=== PATIENT | female | born 1960 | race Caucasian/White ===

== ENCOUNTER 2021-11-03 13:30 | Outpatient (CLI) | payer OTHER, SELFPAY ==
[2021-11-03 21:38] LABS: Albumin* 4.1 g/dL (3.3-5.0)
[2021-11-03 21:41] LABS: Alkaline Phosphatase* 76 U/L (40-150); Aspartate Amino Transferase* 45 U/L (12-35); Bilirubin Direct* 0.3 mg/dL (0.0-0.5); Bilirubin Total* 0.5 mg/dL (0.1-1.5); Total Protein* 7.3 g/dL (6.0-8.3)
[2021-11-03 21:42] LABS: Alanine Aminotransferase* 30 U/L (4-35)
== END 2021-11-03 13:31 | disposition home or self-care (01) ==
LOC: LKVREF 13:30
PROVIDERS: PCP Physician Assistant Medical; Visit Provider Physician Assistant Medical
DX: R74.8 Abnormal levels of other serum enzymes (principal); I10 Essential (primary) hypertension
CPT/HCPCS: 80076

== ENCOUNTER 2021-12-29 09:28 | Emergency (ER) | payer OTHER, SELFPAY ==
[2021-12-29 09:32] VITALS: BP 185/102; PULSE 79; RESP 16; TEMP 36.6; O2SAT 96; BMI 29.8
--- NOTE | 2021-12-29 09:58 | ED_ITS ---
HPI - Fall General Time Seen by Provider: 09:58 Date Seen: 12/29/21 Chief Complaint: Fall/Minor Trauma Stated Complaint: Fell and hurt both shoulders Time Seen by Provider: 12/29/21 09:57 Source: patient and RN notes reviewed Mode of arrival: ambulatory Limitations: no limitations History of Present Illness HPI Narrative: Patient is a 61-year-old female coming in after a fall at work at about 730 this morning. She tripped and fell on her right shoulder landing on her right shoulder. She states it hurts in the right shoulder and inside the right upper arm. She states her fingers feel a little tingly in that side. She also thinks she may have dislocated her left shoulder. She feels it is crunchy in there and both shoulders hurt to move. She did land a bit on her right knee but she is able to walk, having no ongoing pain or concerns with ambulation. She did not hit her head, there was no loss of consciousness. She is having no chest wall pain, no difficulty breathing. MD complaint: fall Related Data Home Medications Medication Instructions Recorded Confirmed cholecalciferol (vitamin D3) 25 25 mcg PO QDAY 10/25/21 11/03/21 mcg (1,000 unit) capsule simvastatin 40 mg tablet 40 mg PO QPM 10/25/21 11/03/21 calcium carbonate 500 mg calcium mg PO DAILY 11/03/21 11/03/21 (1,250 mg) tablet Previous Rx's Medication Instructions Recorded lisinopril 10 1 tab PO QDAY #90 tabs 11/29/21 mg-hydrochlorothiazide 12.5 mg tablet Allergies Allergy/AdvReac Type Severity Reaction Status Date / Time penicillin V Allergy Mild throat Verified 11/03/21 12:54 swelling Review of Systems Status of ROS: Reports: 6 or more systems reviewed and unremarkable except as noted in History and below PFSH PFS Surgical History (Updated 11/02/21 @ 16:16 by Jordan Mesa) History of bunionectomy History of thyroid surgery Status post total replacement of right hip (2019) Family History (Updated 11/02/21 @ 16:17 by Jordan Mesa) Mother Aneurysm Breast cancer High blood pressure Father High blood pressure Pancreatic cancer Brother High blood pressure Social History (Updated 11/02/21 @ 16:17 by Jordan Mesa) Narrative: never smoker Smoking Status: Never smoker Exam Const: Vital Signs, click to edit/add: Vital Signs - 24 hr 12/29/21 09:32 Temperature 97.9 F Pulse Rate [Left P ulse Oximeter] 79 Respiratory Rate 16 Blood Pressure [Le ft Upper Arm] 185/102 H Pulse Oximetry 96 Documenting provider has reviewed patient's vital signs: yes Common normals: no apparent distress, average body habitus, oriented x3, no limitations, healthy appearing and alert General appearance: cooperative, comfortable and well kempt HENMT: Common normals: normocephalic, head/scalp atraumatic and hearing grossly normal bilaterally Head and scalp: normocephalic and atraumatic Eye: Common normals: PERRL, EOMs intact bilaterally, conjunctivae normal and no scleral icterus Conjunctiva: conjunctiva(e) normal Pupil: PERRL Neck & C-Spine: Common normals: full ROM, no lymphadenopathy, supple and no JVD Chest: Common normals: inspection of chest normal and palpation of chest normal Resp: Common normals: normal respiratory effort, no retractions, no use of accessory muscles and clear to auscultation bilaterally Auscultation: clear to auscultation bilaterally Cardio: Common normals: no JVD, regular rate, regular rhythm, S1 normal heart sound, S2 normal heart sound, no gallops, no clicks and no murmurs Rate: regular rate Rhythm: regular rhythm Heart sounds: S1 normal and S2 normal Extremity: Other: Clavicles palpate nontender and intact bilaterally. She does have some crepitus on range of motion of her left shoulder but it certainly seems like it is intact. She has pain when I tried abduct over 90?. I can forward flex but again she gets painful when you get to about 90?. Neurovascular is intact bilaterally. She has got good symmetrical peripheral pulses and can feel light touch sensation. She is nontender about the malleoli on her right elbow and if I isolate her upper arm alongside her body I can flex and extend the elbow without any difficulty. She feels pain along the medial upper arm but glenohumeral joint palpates intact. I did not attempt to mobilize this shoulder at this point until we have seen some imaging. Neuro: Common normals: oriented x3 Sensorium/orientation: alert Speech: speech normal Gait (neuro): normal gait Psych: Appearance: well kempt Course Course Hospital Course: We will get her 1000 mg Tylenol for pain management. Will obtain x-rays of both shoulders and will also look at the humerus on her right arm. Reviewed with her that I do not clinically feel that either of these is dislocated but certainly there still can be other underlying trauma. Sometimes with falls the rotator cuff can actually get injured and that needs to be a consideration. Reevaluation(s) Reevaluation #1: Brought patient her x-ray reports. She is never knowingly dislocated her left shoulder before. I did review with her that I could feel the crepitus that she is feeling when I did range of motion. There can be calcific tendinitis. Does feel like there may be some mild subluxing on ROM. In any event, she can follow up with Orthopedics on this. Did review that she does have a humerus fracture on the right side. We provided a sling for comfort. I gave her some ideas on sleeping positions that may help. She will ultimately need to follow up with Orthopedics. Time: 11:58 Vital Signs Vital signs: Initial Vital Signs Temperature 97.9 F 12/29/21 09:32 Temperature Source Temporal Artery Scan 12/29/21 09:32 Pulse Rate 79 12/29/21 09:32 Respiratory Rate 16 12/29/21 09:32 Blood Pressure 185/102 H 12/29/21 09:32 Blood Pressure Mean 129 12/29/21 09:32 Blood Pressure Position Sitting 12/29/21 09:32 Pulse Oximetry 96 12/29/21 09:32 Vital Signs Temperature 97.9 F 12/29/21 09:32 Pulse Rate 79 12/29/21 09:32 Respiratory Rate 16 12/29/21 09:32 Blood Pressure 185/102 H 12/29/21 09:32 Pulse Oximetry 96 12/29/21 09:32 Temperature 97.9 F 12/29/21 09:32 Pulse Rate 79 12/29/21 09:32 Respiratory Rate 16 12/29/21 09:32 Blood Pressure 185/102 H 12/29/21 09:32 Pulse Oximetry 96 12/29/21 09:32 MDM - Fall Imaging Data X-ray right humerus: Attestation: I have reviewed the pertinent imaging results. My impression: Proximal humeral fracture, humeral head fracture. Radiologist's impression: Patient: HARSHAL HERNDON Facility:?[facility] Patient ID:?[id number] Site Patient ID:?[id number]. Site :?[id number] Study:?XRay Extremity Right Humerus 2v-12/29/2021 10:51:36 AM Ordering Physician:?Seven Yap Final Report: Indication: Fall, pain Comparison: None available. Technique: AP and lateral views right humerus were obtained. Findings: There is a nondisplaced, mildly impacted fracture of the proximal humerus. No evidence of distal injury is seen. The joint spaces are grossly preserved. There is moderate superficial soft tissue swelling. Impression: Nondisplaced, mildly impacted fracture of the proximal humerus. No evidence of distal injury. Dictated by Enrique Reynolds MD @ 12/29/2021 11:14:00 AM X-ray right shoulder: Attestation: I have reviewed the pertinent imaging results. My impression: Humeral head fracture, does not appear significantly displaced, may be impacted on my preliminary report. Radiologist's impression: Patient: HARSHAL HERNDON Facility:?[facility] Patient ID:?[id number] Site Patient ID:?[id number]. Site :?[id number] Study:?XRay Shoulder Right 3 VIEW-12/29/2021 10:51:13 AM Ordering Physician:Nataly Yap Final Report: Indication: Fall, pain Comparison: None available. Technique: Three-views right shoulder were obtained. Findings: There is a nondisplaced, mildly impacted fracture of the proximal humerus. No other displaced injuries are seen. Degenerative changes of the acromioclavicular and glenohumeral joints are appreciated. The soft tissues are unremarkable. Impression: Nondisplaced, mildly impacted fracture of the proximal humerus. Dictated by Enrique Reynolds MD @ 12/29/2021 11:06:45 AM (Electronic Signature) X-ray left shoulder: Attestation: I have reviewed the pertinent imaging results. My impression: See some calcium deposits above the humeral head, wonder if it could be calcific tendinitis. Await Radiology over-read. Radiologist's impression: Patient: HARSHAL HERNDON Facility:?[facility] Patient ID:?[id number] Site Patient ID:?[id number]. Site :?[id number] Study:?XRay Shoulder Left 3 VIEW-12/29/2021 10:50:52 AM Ordering Physician:Nataly Yap Final Report: Indication: Fall, Pain Comparison: None available. Technique: 3 views left shoulder were obtained. Findings: There is no displaced fracture or dislocation. Moderate degenerative changes of the acromioclavicular and glenohumeral joint are appreciated with questionable deformity of the anteroinferior glenoid process which may represent sequela of prior fracture. The soft tissues are unremarkable. Impression: Degenerative changes of the acromioclavicular and glenohumeral joints with cortical deformity along the inferior glenoid process which is somewhat age indeterminate and may represent sequela of prior fracture and/or dislocation. Dictated by Enrique Reynolds MD @ 12/29/2021 11:04:23 AM (Electronic Signature) Critical Care Time Critical Care Time Critical Care Time: No Discharge Plan Discharge Clinical Impression: Acute pain of left shoulder Fracture of proximal end of right humerus Qualifiers: Encounter type: initial encounter Fracture type: closed Fracture alignment: nondisplaced Condition: Stable Instructions: Arm Fracture in Adults (ED), Shoulder Impingement Syndrome (ED) Additional Instructions: Need to call Orthopedic Clinic to get scheduled for followup. Call [phone] to get scheduled for this appointment. Sling to the right arm for comfort/immobilization. May want to try to sleep with your head elevated and pillows supporting behind this right shoulder for comfort. Tylenol and/or ibuprofen per bottle directions as needed for pain management. Ice to the upper right arm to help decrease pain and swelling. Prescriptions: No Action calcium carbonate 500 mg calcium (1,250 mg) tablet PO DAILY simvastatin 40 mg tablet 40 mg PO QPM cholecalciferol (vitamin D3) 25 mcg (1,000 unit) capsule 25 mcg PO QDAY lisinopril-hydrochlorothiazide 10-12.5 mg tablet 1 tab PO QDAY Qty: 90 2RF Follow Up/Referrals: Nahomi Dobbs PA-C [Primary Care Provider] - Stand Alone Forms: [facility] Info Instructions
--- NOTE | 2021-12-29 10:01 | CRLHL7_ITS ---
For Patients: As a result of the Cures Act, medical imaging exams and procedure reports are released immediately into your electronic medical record. You may view this report before your referring provider. If you have questions, please contact your health care provider. Indication: Fall, Pain Comparison: None available. Technique: 3 views left shoulder were obtained. Findings: There is no displaced fracture or dislocation. Moderate degenerative changes of the acromioclavicular and glenohumeral joint are appreciated with questionable deformity of the anteroinferior glenoid process which may represent sequela of prior fracture. The soft tissues are unremarkable. Impression: Degenerative changes of the acromioclavicular and glenohumeral joints with cortical deformity along the inferior glenoid process which is somewhat age indeterminate and may represent sequela of prior fracture and/or dislocation. Dictated by Enrique Reynolds MD @ 12/29/2021 11:04:23 AM (Electronically Signed)
--- NOTE | 2021-12-29 10:01 | CRLHL7_ITS ---
For Patients: As a result of the Cures Act, medical imaging exams and procedure reports are released immediately into your electronic medical record. You may view this report before your referring provider. If you have questions, please contact your health care provider. Indication: Fall, pain Comparison: None available. Technique: Three-views right shoulder were obtained. Findings: There is a nondisplaced, mildly impacted fracture of the proximal humerus. No other displaced injuries are seen. Degenerative changes of the acromioclavicular and glenohumeral joints are appreciated. The soft tissues are unremarkable. Impression: Nondisplaced, mildly impacted fracture of the proximal humerus. Dictated by Enrique Reynolds MD @ 12/29/2021 11:06:45 AM (Electronically Signed)
--- NOTE | 2021-12-29 10:01 | CRLHL7_ITS ---
For Patients: As a result of the Cures Act, medical imaging exams and procedure reports are released immediately into your electronic medical record. You may view this report before your referring provider. If you have questions, please contact your health care provider. Indication: Fall, pain Comparison: None available. Technique: AP and lateral views right humerus were obtained. Findings: There is a nondisplaced, mildly impacted fracture of the proximal humerus. No evidence of distal injury is seen. The joint spaces are grossly preserved. There is moderate superficial soft tissue swelling. Impression: Nondisplaced, mildly impacted fracture of the proximal humerus. No evidence of distal injury. Dictated by Enrique Reynolds MD @ 12/29/2021 11:14:00 AM (Electronically Signed)
[2021-12-29] MEDS: ACETAMINOPHEN 500 MG TABLET 1000 MG PO (10:10)
== END 2021-12-29 12:13 | disposition home or self-care (01) ==
PROVIDERS: Emergency Provider Family Medicine; PCP Physician Assistant Medical
DX: M25.512 Pain in left shoulder (principal); S42.201A Unspecified fracture of upper end of right humerus, initial encounter for closed fracture; W19.XXXA Unspecified fall, initial encounter
CPT/HCPCS: 73030; 73060; 99283; 99284; A9270

== ENCOUNTER 2022-01-13 07:52 | Outpatient (CLI) | payer OTHER, SELFPAY ==
--- NOTE | 2022-01-13 08:00 | CRLHL7_ITS ---
For Patients: As a result of the Century Cures Act, medical imaging exams and procedure reports are released immediately into your electronic medical record. You may view this report before your referring provider. If you have questions, please contact your health care provider. Indication: LEFT SHOULDER PAIN, INJURY, POSSIBLE GLENOID FRACTURE Technique: Routine noncontrast CT shoulder, left Please note that all CT scans at this facility use dose modulation, iterative reconstruction, and/or weight-based dosing when appropriate to reduce radiation dose to as low as reasonably achievable. Comparison: X-rays 01/05/2022 Findings: There is a displaced and comminuted intra-articular fracture of the mid and inferior left glenoid. Associated significant impaction is present. The anterior inferior glenoid fracture fragment measures 1.5 cm and is displaced inferomedially. Multiple bone fragments are present within the joint capsule. A large joint effusion is present resulting in inferior pseudosubluxation of the humeral head. Chronic degenerative changes at the greater tuberosity. Narrowing and spurring at the acromioclavicular joint. Visualized lung parenchyma normal. Intact clavicle and visualized ribs. Impression: Displaced and comminuted glenoid fracture with associated impaction and significant displacement of bone fragments inferomedially. Multiple bone fragments within the joint capsule along with a large joint effusion. Please note that all CT scans at this facility use dose modulation, iterative reconstruction, and/or weight-based dosing when appropriate to reduce radiation dose to as low as reasonably achievable. Dictated by oBgdan Sutton MD @ 01/13/2022 9:44:51 AM (Electronically Signed)
== END 2022-01-13 07:53 | disposition home or self-care (01) ==
PROVIDERS: PCP Physician Assistant Medical; Visit Provider Physician Assistant Surgical
DX: M25.512 Pain in left shoulder (principal); S42.142A Displaced fracture of glenoid cavity of scapula, left shoulder, initial encounter for closed fracture; M25.412 Effusion, left shoulder
CPT/HCPCS: 73200

== ENCOUNTER 2022-03-08 10:18 | Day surgery (SDC) | payer OTHER, SELFPAY ==
[2022-03-08] VITALS (21 sets, daily range): BP systolic 109–159; BP diastolic 66–98; PULSE 55–80; RESP 14–18; TEMP 36.3–36.8; O2SAT 92–100; BMI 29.8
[2022-03-08] MEDS: CELECOXIB 200 MG CAPSULE PO (10:22)
[2022-03-08] MEDS: SODIUM CHLORIDE 0.9 % (FLUSH) 10 ML SYRINGE IVF (11:30)
[2022-03-08] MEDS: LACTATED RINGERS 1000 ML 1,000 ML 100 ML IV (11:30)
[2022-03-08] MEDS: ETHYL CHLORIDE 1 APPLICATION 1 APPLIC TOPICAL (11:30)
[2022-03-08] MEDS: ACETAMINOPHEN 500 MG TABLET 1000 MG PO ×2 (12:00→20:46)
[2022-03-08] MEDS: OXYCODONE (CR) 10 MG TAB.ER.12H PO (12:00)
--- NOTE | 2022-03-08 13:15 | SUR.PREOP ---
TIME?OUT:?1315 PT/RN flo /LINDSEY?dr shepard VERIFICATION?OF?SURGICAL?SITE left shoulder,?PROCEDURE,?AND?CONSENT OBTAINED?PRIOR?TO?INVASIVE?PROCEDURE.
[2022-03-08] MEDS: fentaNYL 100 MCG/2 ML inj IVP (13:16)
[2022-03-08] MEDS: MIDAZOLAM HCL 1 MG/ML inj IVP (13:16)
--- NOTE | 2022-03-08 13:21 | W.PM.NB ---
Nerve Block Nerve Block Time Seen by Provider: 13:17 Date Seen: 03/08/22 Type of block requested by surgeon for post-operative analgesia: supraclavicular Side: left Time out performed: Yes Verification of patient name: Yes Verification of date of : Yes Site marking: site marked Name of person performing procedure: Shaq Continuous monitoring Was continuous monitoring of O2 sat, B/P, awake overnight monitor, recorded every 15 minutes?: Yes Procedure Checklist: sterile prep, needles and gloves Ultrasound guided. Images saved: Yes Medications given in 5ml increments after negative aspiration: Ropivicaine %: 0.5 mL: 20 Needle gauge: 22 Decadron (mg): 10 Precedex (mcg): 25 Patient tolerated procedure well: Yes Block Charges Block Charge (with Pro Fee): Brachial Plexus Use of Ultrasound Machine for Block: Yes- US Guidance/pain block
--- NOTE | 2022-03-08 14:22 | CRLHL7_ITS ---
For Patients: As a result of the Cures Act, medical imaging exams and procedure reports are released immediately into your electronic medical record. You may view this report before your referring provider. If you have questions, please contact your health care provider. Indication: Postop Technique: Two views left shoulder Findings/Impression: Hardware from a left reversed total shoulder arthroplasty is in satisfactory position. Bone alignment is normal. No sign of acute fracture. Postop changes are within normal limits. Dictated by Bogdan Sutton MD @ 03/09/2022 8:40:10 AM (Electronically Signed)
--- NOTE | 2022-03-08 17:17 | P.ORPRC_ITS ---
Procedure Note Date of procedure: 03/08/22 Procedure: PREOPERATIVE DIAGNOSIS: 1. Left shoulder osteoarthrosis, secondary, severe with significant glenoid deformity of the anterior half of the glenoid 2. Left long head of the biceps tendinopathy and tenosynovitis POSTOPERATIVE DIAGNOSIS: 1. Left shoulder osteoarthrosis, secondary, severe with significant glenoid deformity of the anterior half of the glenoid 2. Left long head of the biceps tendinopathy and tenosynovitis PROCEDURE: 1. Left reverse shoulder arthroplasty. 2. Left long head of biceps open tenodesis SURGEON: Jose Luis Mckee MD. FLOATING OPERATOR: Gerard Cancino PA-C; Derek DUARTE - Of note, a skilled asset protection assistant was critical for this case to aid in patient positioning, tissue retraction, limb manipulation/positioning, retraction for glenoid exposure, which was challenging, awareness and protection of critical structures, and closure. ANESTHESIA: General plus supraclavicular block IMPLANTS: DJ0 surgical Altivate humeral stem size 10 small shell, short with P2 porous coating vitamin E neutral poly small socket insert RSP glenoid base plate P2 porous coating with 2 perimeter locking screws 32 neutral glenosphere with retaining screw COMPLICATIONS: None evident INDICATIONS: The patient is a pleasant 62-year-old female who sustained a left shoulder dislocation. Reportedly this was her 1st dislocation. Post reduction imaging showed a significantly deformed glenoid with the anterior half fractured and collapsed medially. CT scan was obtained confirming these findings in showing the deformity. He has not felt that she would have a large enough glenoid for a standard anatomic TSA. Her humeral head also showed a significant flattening in fact indentation/concavity to the humeral head consistent with chronic dislocation/subluxation resting posterior, possibly even having a congenital component. Given the deformity, the dysfunction, and the pain, and failure of nonoperative management, recommendation was made for surgery. DESCRIPTION OF PROCEDURE: Following a thorough discussion of risks, benefits, and alternatives, consent was obtained and the left shoulder was marked. The patient was brought to the operating room and placed supine on the operating table. Induction of anesthesia was undertaken. 2 g IV Ancef and 1 g tranexamic acid was administered within 1 hr of incision preoperatively. Appropriate time-out was performed identifying proper patient, site, and procedure. The operative extremity was prepped and draped in the appropriate sterile fashion using ChloraPrep after the patient was positioned in the lazy beach chair position with head in neutral alignment and all bony prominences wel l padded. A longitudinal incision was made for deltopectoral approach. Deltoid was retracted laterally. Cephalic vein was identified and retracted laterally as well. The vein was ligated as it was compromised during the case. The clavipectoral fascia was identified and divided longitudinally staying lateral to the conjoined tendon / coracoid. The conjoined tendon was protected with a blunt Hohmann. The long head of the biceps tendon was identified and the bicipital sheath released. The upper 1/2 of the pectoralis major was also released from its insertion. The long head of the biceps was tenodesed to the pectoralis major tendon. The remaining proximal tendon tissue was excised. The rotator cuff was inspected and found to have good integrity with the subscapularis but fair integrity with a supraspinatus], and a decision for a reverse shoulder arthroplasty was confirmed. The long head of biceps, of note, was significant flattened, thickened, with abundant tenosynovitis. A subscapularis cuff of tissue was left via tenotomy for later repair with the remaining subscapularis released in a subperiosteal fashion with the Bovie. This was tagged for later repair. The 3 sisters were cauterized. The upper subscapularis was released from the capsule with a curved Franks scissors towards the glenoid. The inferior subscapularis was divided from the capsular tissue on its caudal surface with particular caution for the axillary nerve. This was palpated anterior to the subscapularis both prior to and near the finish of the case. Inferior humeral head osteophytes were excised with caution taken throughout the case with regards to the axillary nerve. The humerus was dislocated, and humeral head cut completed. Then a protector plate was applied. We turned our attention to the glenoid. The humerus was retracted posteriorly. The subscap was protected anteriorly and the labrum/long head biceps origin was excised circumferentially. The capsule was released along the anterior and inferior portions of the glenoid cautiously with a Renteria elevator being careful not to penetrate deep. The glenoid had appropriate exposure, and was prepared with the cannulated system with a target of approximately 5-10? of inferior tilt and neutral anteversion (patient had significant retroversion initially but also significantly deformed glenoid with the anterior nearly 1/2 of the glenoid fallen medially consistent with the previous fracture). [Utilizing the match Point 3D printed guide, the guide pin was placed. The 3D printed jig removed and after placing the guide pin, the tap was placed followed by the glenoid reaming. The real base plate was opened, and inserted, and excellent compression/purchase was achieved with the central screw. Peripheral screws were then drilled, measured, and placed. The glenosphere was then placed consistent with the preoperative plan utilizing the above noted glenosphere. After securing the glenosphere with the locking, torque limited screw, attention was turned back to the humerus. A canal finder was placed followed by various reamers by hand. The real humeral stem was then opened and inserted with excellent metaphyseal fit and stability. Trial poly was placed and the shoulder reduced. Excellent reduction and stability achieved with appropriate tension on the conjoined tendon. At this stage, trial implants were removed, and the real implants inserted and the shoulder reduced. A 3 minute Betadine soak was performed followed by a thorough irrigation with normal saline. Subscapularis was repaired with #[1 PDS and 2. FiberWire. 2 the sutures were passed around the stem of the implant and 2 more to the cuff of tissue on the lesser tuberosity. Excellent reapproximation of tissue achieved. Hemostasis was found to be appropriate. The deltopectoral interval was reapproximated with 0 Vicryl, subcutaneous and subcuticular closure was then performed with number 2-0 Vicryl and 4-0 Monocryl, respectively. A skilled asset protection assistant was critical for this case to aid in patient positioning, tissue retraction, limb manipulation/positioning, retraction for glenoid exposure, which was challenging, awareness and protection of critical structures, and closure. PLAN: 1. Sling at all times for the operative upper extremity. 2. AROM of elbow, forearm, wrist, and digits as tolerated. 3. PT/OT consults for education and assistance. 4. Social consult for discharge planning. 5. 23 hr perioperative antibiotics. 6. Early ambulation, and SCDs for DVT prophylaxis. 7. Admit to the hospital for the above 8. Analgesics p.r.n.
--- NOTE | 2022-03-08 18:01 | W.ANESCHARGE ---
Anesthesia Charges Start Date/Time Anesthesia Start Date: 03/08/22 Anesthesia Start Time: 14:30 Stop Date/Time Anesthesia Stop Date: 03/08/22 Anesthesia Stop Time: 17:57 Summary Emergency: No
--- NOTE | 2022-03-08 19:35 | PM.IMCN1 ---
Date of Consult Consult date: 03/08/22 Requesting Physician: Orthopedics Primary Care Provider: Nahomi Dobbs PA-C Consult Narrative Reason for consult: Management of medical problems following surgery Narrative: Thi Renae is a 62 year old female seen in consultation for management of medical problems following left shoulder arthroplasty. Procedure was prolonged but without complications. She is doing well postoperatively without any concerns. She is having no pain, nausea, dyspnea. She reports feeling well preoperatively with no concerns. Preoperative evaluation was only notable for low potassium of 3.4 and she has been on potassium replacement, 10 mEq a day. No other significant perioperative medical concerns have been identified. Review of Systems Narrative: No recent illness or injury. 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 She does not drink alcohol. She plans to return home with her son, Alex, helping her. Smoking Status: Never smoker Do you use any of these nicotine containing products: None Second hand tobacco smoke exposure: No How often do you have a drink containing alcohol: never How often do you have six or more drinks on one occasion: Never AUDIT-C Alcohol total score: 0 Non-prescribed substance use: denies use Caffeine: Yes (occ pop) service: Yes Meds Home Medications and Allergies Home Medications Medication Instructions Recorded Confirmed Type cholecalciferol (vitamin D3) 25 25 mcg PO QDAY 10/25/21 03/08/22 History mcg (1,000 unit) capsule simvastatin 40 mg tablet 40 mg PO QPM 10/25/21 03/08/22 History calcium carbonate 500 mg calcium 500 mg PO DAILY 11/03/21 03/08/22 History (1,250 mg) tablet Allergies Allergy/AdvReac Type Severity Reaction Status Date / Time penicillin V Allergy Mild throat Verified 03/08/22 13:24 swelling Exam Narrative: Exam Narrative: She is alert and appears in no distress. She gives her own history. Eyes normal. Oropharynx normal. Neck is supple without mass or adenopathy. Respirations are clear to auscultation. Cardiovascular: S1, S2, regular rate and rhythm. No murmur gallop or rub. Abdomen: Bowel sounds active. Abdomen is soft without tenderness or mass. Upper extremities notable for ice pack on her left shoulder. She has minimal movement and decreased sensation in her left hand. Hand is warm to touch and she has a good radial pulse. Left upper extremity is normal. Lower extremities with intact pulses sensation and no edema. Const: Vital Signs, click to edit/add: Vital Signs - 24 hr 03/08/22 11:00 03/08/22 13:15 03/08/22 13:34 Temperature 98.3 F Pulse Rate 66 76 70 Respiratory Rate 16 14 14 Blood Pressure 139/96 H 151/98 H 120/73 Blood Pressure [Ri ght Arm] Pulse Oximetry 97 100 99 Oxygen Delivery Me thod Room Air Nasal Cannula Nasal Cannula Oxygen Flow Rate 3 3 03/08/22 13:20 03/08/22 13:30 03/08/22 17:55 Temperature 97.6 F Pulse Rate 80 71 77 Respiratory Rate 14 14 16 Blood Pressure 149/94 H 120/73 142/96 H Blood Pressure [Ri ght Arm] Pulse Oximetry 100 100 94 Oxygen Delivery Me thod Nasal Cannula Nasal Cannula Room Air Oxygen Flow Rate 3 3 03/08/22 18:20 03/08/22 18:00 03/08/22 18:05 Temperature Pulse Rate 61 73 69 Respiratory Rate 16 16 16 Blood Pressure 133/76 146/93 H 136/88 Blood Pressure [Ri ght Arm] Pulse Oximetry 96 94 94 Oxygen Delivery Me thod Oxygen Flow Rate 03/08/22 18:10 03/08/22 18:15 03/08/22 18:21 Temperature 97.7 F Pulse Rate 64 62 60 Respiratory Rate 16 16 16 Blood Pressure 141/90 H 143/86 H 134/81 Blood Pressure [Ri ght Arm] Pulse Oximetry 98 96 96 Oxygen Delivery Me thod Room Air Room Air Oxygen Flow Rate 12/14/22 18:35 Temperature 97.6 F Pulse Rate 55 L Respiratory Rate 16 Blood Pressure Blood Pressure [Ri ght Arm] 151/93 H Pulse Oximetry Oxygen Delivery Me thod Room Air Oxygen Flow Rate Documenting provider has reviewed patient's vital signs: yes Assessment and Plan Assessment and plan (1) Status post reverse arthroplasty of shoulder: Problem comment: Doing well postoperatively. Routine management of pain. Routine therapy and follow-up. Status: Acute (2) Hypertension: Problem comment: On lisinopril/hydrochlorothiazide. Resume normal medications Status: Acute (3) Hypokalemia: Problem comment: Continue supplemental potassium as outpatient Status: Acute Plan Continue routine pain management and therapy. Total time spent today is 30 minutes, 20 minutes in coordination of care and discussing with patient, son and other providers postoperative management of medical problems and shoulder surgery
[2022-03-08] MEDS: SENNOSIDES 1 TAB TABLET 2 TAB PO (20:47)
[2022-03-08] MEDS: LACTATED RINGERS 1000 ML 1,000 ML 75 ML IV (20:47)
[2022-03-09] VITALS: BP 108/71; PULSE 77; RESP 16; TEMP 36.9; O2SAT 96
[2022-03-09 01:00] VITALS: BP 107/65; PULSE 55; O2SAT 95
[2022-03-09 06:00] VITALS: BP 124/75; PULSE 64; RESP 18; TEMP 36.8; O2SAT 96
[2022-03-09] MEDS: ACETAMINOPHEN 500 MG TABLET 1000 MG PO (06:06)
--- NOTE | 2022-03-09 06:49 | PC.NURSE ---
End of shift status [id number] Pt alert and oriented. Denies pain. Receiving scheduled tylenol. CMS intact to left hand. Dressing CDI. Sling to left arm. Up with stand by to independent. IV fluids stopped, PO intake adeqaute. Voiding without difficulty. Pt observed resting well between cares. Plan to d/c home today.
[2022-03-09 07:00] VITALS: BP 132/95; PULSE 89; RESP 18; TEMP 36.9; O2SAT 96
[2022-03-09 08:12] LABS: Hematocrit 37.3 % (33.0-51.0); Hemoglobin* 12.7 gm/dL (12.0-16.0); Mean Corpuscular HGB Conc 34 gm/dL (32-36); Mean Corpuscular Hemoglobin 29 pg (26-34); Mean Corpuscular Volume 85 fL (80-100); Platelet Count* 260 K/uL (140-440); Red Blood Count 4.39 m/uL (4.00-5.20); White Blood Count* 11.54 K/uL (4.50-11.00)
[2022-03-09 08:22] LABS: Sodium* 137 mmol/L (135-149)
[2022-03-09 08:25] LABS: Blood Urea Nitrogen* 22 mg/dL (7-30); Creatinine* 0.6 mg/dL (0.5-1.5); Est. Creatinine Clearance* 51.81; Estimated Glomerular Filt Rate 101 ml/min
[2022-03-09 08:26] LABS: Slide Review Reflex No
[2022-03-09] MEDS: CALCIUM CARBONATE 500 MG TABLET PO (09:23)
[2022-03-09] MEDS: POTASSIUM CHLORIDE 10 MEQ CAPSULE ER PO (09:23)
[2022-03-09] MEDS: lisinopriL 10 MG TABLET PO (09:24)
[2022-03-09 09:26] VITALS: BP 134/81; PULSE 55; RESP 18; TEMP 36.8
--- NOTE | 2022-03-09 13:04 | P.ORPN_ITS ---
Subjective Subjective Date Seen: 03/09/22 Principal diagnosis: Status postop day 1 left reverse total shoulder arthroplasty Interval history: Patient reports doing well. No acute events over night. Pain is very minimal, managed with p.r.n. medications and ice; she has not had any oral narcotics since surgery. Bilateral knee high Preston stockings, and SCDs. Denies fevers, chills, aches, N/V, CP, SOB/ALVARADO, tachycardia, or lightheadedness. Ortho Exam Narrative Exam Narrative: -Patient appears comfortable in bed; no apparent acute distress -Alert and oriented times 3 -Operative shoulder mildly swollen; soft, supple tissues; no obvious erythema. No ecchymosis. Warmth appropriate -Surgical dressing clean, dry, intact; no obvious drainage, no erythematous str eaking peripheral to the bandage -Bilateral calves soft and supple; no significant swelling, edema, tenderness, erythema, discoloration, warmth, or palpable cords -2+ radial pulse, intact dermatomes and myotomes distally (5/5 strength). Specifically axillary nerve intact Const Vital Signs, click to edit/add: Vital Signs - 24 hr 03/08/22 13:15 03/08/22 13:34 03/08/22 13:20 Temperature Pulse Rate 76 70 80 Pulse Rate [Pulse Oximeter] Respiratory Rate 14 14 14 Blood Pressure 151/98 H 120/73 149/94 H Blood Pressure [Right Arm] Pulse Oximetry 100 99 100 Oxygen Delivery Method Nasal Cannula Nasal Cannula Nasal Cannula Oxygen Flow Rate 3 3 3 03/08/22 13:30 03/08/22 17:55 03/08/22 18:20 Temperature 97.6 F Pulse Rate 71 77 61 Pulse Rate [Pulse Oximeter] Respiratory Rate 14 16 16 Blood Pressure 120/73 142/96 H 133/76 Blood Pressure [Right Arm] Pulse Oximetry 100 94 96 Oxygen Delivery Method Nasal Cannula Room Air Oxygen Flow Rate 3 03/08/22 18:00 03/08/22 18:05 03/08/22 18:10 Temperature Pulse Rate 73 69 64 Pulse Rate [Pulse Oximeter] Respiratory Rate 16 16 16 Blood Pressure 146/93 H 136/88 141/90 H Blood Pressure [Right Arm] Pulse Oximetry 94 94 98 Oxygen Delivery Method Room Air Oxygen Flow Rate 03/08/22 18:15 03/08/22 18:21 03/08/22 18:35 Temperature 97.7 F 97.6 F Pulse Rate 62 60 55 L Pulse Rate [Pulse Oximeter] Respiratory Rate 16 16 16 Blood Pressure 143/86 H 134/81 Blood Pressure [Right Arm] 151/93 H Pulse Oximetry 96 96 Oxygen Delivery Method Room Air Room Air Oxygen Flow Rate 03/08/22 19:15 03/08/22 20:30 03/08/22 20:10 Temperature 97.4 F L Pulse Rate Pulse Rate [Pulse Oximeter] 55 L 66 64 Respiratory Rate 18 18 18 Blood Pressure Blood Pressure [Right Arm] 135/82 153/93 H 159/95 H Pulse Oximetry 96 Oxygen Delivery Method Room Air Room Air Oxygen Flow Rate 03/08/22 19:30 03/08/22 20:00 03/08/22 21:00 Temperature Pulse Rate Pulse Rate [Pulse Oximeter] 64 66 70 Respiratory Rate Blood Pressure Blood Pressure [Right Arm] 147/96 H 159/95 H 148/83 H Pulse Oximetry 96 96 97 Oxygen Delivery Method Room Air Room Air Room Air Oxygen Flow Rate 03/08/22 22:00 03/08/22 23:00 03/09/22 00:00 Temperature 98.4 F Pulse Rate Pulse Rate [Pulse Oximeter] 62 68 77 Respiratory Rate 16 Blood Pressure Blood Pressure [Right Arm] 127/84 109/66 108/71 Pulse Oximetry 97 96 96 Oxygen Delivery Method Room Air Room Air Room Air Oxygen Flow Rate 03/09/22 01:00 03/09/22 06:00 03/09/22 07:00 Temperature 98.2 F 98.4 F Pulse Rate Pulse Rate [Pulse Oximeter] 55 L 64 89 Respiratory Rate 18 18 Blood Pressure Blood Pressure [Right Arm] 107/65 124/75 132/95 H Pulse Oximetry 95 96 96 Oxygen Delivery Method Room Air Room Air Room Air Oxygen Flow Rate 03/09/22 09:26 Temperature 98.2 F Pulse Rate 55 L Pulse Rate [Pulse Oximeter] Respiratory Rate 18 Blood Pressure 134/81 Blood Pressure [Right Arm] Pulse Oximetry Oxygen Delivery Method Oxygen Flow Rate Assessment and Plan Assessment and plan (1) Status post reverse arthroplasty of shoulder: Problem details: Postop day 1 left reverse total shoulder arthroplasty and long head biceps tenodesis Status: Acute (2) Hypertension: Problem details: On lisinopril/hydrochlorothiazide. Resume normal medications Status: Acute (3) Hypokalemia: Problem details: Continue supplemental potassium as outpatient Status: Acute Plan - Complete 23 hour perioperative antibiotics. - PT/OT consult for education and assistance. - Social work consult for discharge planning - Prescribed analgesics as needed - DVT prophylaxis: bilateral knee high Preston Hose stockings and SCDs - Anticipation is for discharge to home with son today, 03/09/22 if the patient remains medically stable, pain is controlled, and they have past physical therapy/occupational therapy requirements.
--- NOTE | 2022-03-09 13:09 | P.DS_ITS ---
DS: Providers Provider Date Seen: 03/09/22 Date of admission: Med/Surg Recovery 03/08/2022 Primary care physician: Nahomi Dobbs PA-C Consults: 03/08/22 18:40 Consult to Occupational Therapy [CONS] Routine Comment: Reason(s) for OT Consult:: Evaluate and Treat Any Restrictions?:: See Comment Comment: ROM elbow, forearm, wrist, digits PRN Shoulder pendulums okay No active shoulder ROM Consult to Physical Therapy [CONS] Routine Comment: Reason(s) for PT Consult:: Evaluate and Treat Any Restrictions?:: No Restrictions Consult to Physician [CONS] Routine Comment: Consulting Provider: Hospitalists Has provider been notified: No Consult to Scrap Collector [CONS] Routine Comment: Reason for Consult:: Discharge Planning Needs Attending Physician on discharge: Jose Luis Mckee MD Date of Discharge: 03/09/22 DS: Diagnosis Discharge Diagnosis (1) Closed fracture of glenoid cavity of left scapula: Status: Acute Problem details: Status post left reverse total shoulder arthroplasty and long head biceps tenodesis DS: Summary Hospital Course Hospital Course: The patient has a history of the left shoulder glenoid cavity 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 After appropriate preoperative evaluation, the patient underwent left reverse total shoulder arthroplasty and long head biceps tenodesis. Postoperatively they progressed to PT/OT and were felt ready and prepared for discharge to home with appropriate pain medication. Status at Discharge Functional status at discharge: independent ambulation Overall status at discharge: patient is progressing back to baseline Time Spent with Patient Time attestation: Total time spent providing and/or coordinating discharge services: Time spent: Less than 30 minutes Specific discharge activities: No weight-bearing left upper extremity Exam Const: Vital Signs, click to edit/add: Vital Signs - 24 hr 03/08/22 13:15 03/08/22 13:34 03/08/22 13:20 Temperature Pulse Rate 76 70 80 Pulse Rate [Pulse Oximeter] Respiratory Rate 14 14 14 Blood Pressure 151/98 H 120/73 149/94 H Blood Pressure [Ri ght Arm] Pulse Oximetry 100 99 100 Oxygen Delivery Me thod Nasal Cannula Nasal Cannula Nasal Cannula Oxygen Flow Rate 3 3 3 03/08/22 13:30 03/08/22 17:55 03/08/22 18:20 Temperature 97.6 F Pulse Rate 71 77 61 Pulse Rate [Pulse Oximeter] Respiratory Rate 14 16 16 Blood Pressure 120/73 142/96 H 133/76 Blood Pressure [Ri ght Arm] Pulse Oximetry 100 94 96 Oxygen Delivery Me thod Nasal Cannula Room Air Oxygen Flow Rate 3 03/08/22 18:00 03/08/22 18:05 03/08/22 18:10 Temperature Pulse Rate 73 69 64 Pulse Rate [Pulse Oximeter] Respiratory Rate 16 16 16 Blood Pressure 146/93 H 136/88 141/90 H Blood Pressure [Ri ght Arm] Pulse Oximetry 94 94 98 Oxygen Delivery Me thod Room Air Oxygen Flow Rate 03/08/22 18:15 03/08/22 18:21 03/08/22 18:35 Temperature 97.7 F 97.6 F Pulse Rate 62 60 55 L Pulse Rate [Pulse Oximeter] Respiratory Rate 16 16 16 Blood Pressure 143/86 H 134/81 Blood Pressure [Ri ght Arm] 151/93 H Pulse Oximetry 96 96 Oxygen Delivery Me thod Room Air Room Air Oxygen Flow Rate 03/08/22 19:15 03/08/22 20:30 03/08/22 20:10 Temperature 97.4 F L Pulse Rate Pulse Rate [Pulse Oximeter] 55 L 66 64 Respiratory Rate 18 18 18 Blood Pressure Blood Pressure [Ri ght Arm] 135/82 153/93 H 159/95 H Pulse Oximetry 96 Oxygen Delivery Me thod Room Air Room Air Oxygen Flow Rate 03/08/22 19:30 03/08/22 20:00 03/08/22 21:00 Temperature Pulse Rate Pulse Rate [Pulse Oximeter] 64 66 70 Respiratory Rate Blood Pressure Blood Pressure [Ri ght Arm] 147/96 H 159/95 H 148/83 H Pulse Oximetry 96 96 97 Oxygen Delivery Me thod Room Air Room Air Room Air Oxygen Flow Rate 03/08/22 22:00 03/08/22 23:00 03/09/22 00:00 Temperature 98.4 F Pulse Rate Pulse Rate [Pulse Oximeter] 62 68 77 Respiratory Rate 16 Blood Pressure Blood Pressure [Ri ght Arm] 127/84 109/66 108/71 Pulse Oximetry 97 96 96 Oxygen Delivery Me thod Room Air Room Air Room Air Oxygen Flow Rate 03/09/22 01:00 03/09/22 06:00 03/09/22 07:00 Temperature 98.2 F 98.4 F Pulse Rate Pulse Rate [Pulse Oximeter] 55 L 64 89 Respiratory Rate 18 18 Blood Pressure Blood Pressure [Ri ght Arm] 107/65 124/75 132/95 H Pulse Oximetry 95 96 96 Oxygen Delivery Me thod Room Air Room Air Room Air Oxygen Flow Rate 03/09/22 09:26 Temperature 98.2 F Pulse Rate 55 L Pulse Rate [Pulse Oximeter] Respiratory Rate 18 Blood Pressure 134/81 Blood Pressure [Ri ght Arm] Pulse Oximetry Oxygen Delivery Me thod Oxygen Flow Rate DS: Data Data Completed and Pending Labs on day of discharge: Labs from last 24 hours 03/09/22 03/09/22 08:00 08:00 WBC 11.54 H RBC 4.39 Hgb 12.7 Hct 37.3 MCV 85 MCH 29 MCHC 34 Plt Count 260 Sodium 137 Potassium 4.0 BUN 22 Creatinine 0.6 Estimated Creat Clear 51.81 Estimated GFR 101 Discharge Plan Discharge Disposition: Home, Self-Care Discharging Surgeon: Jose Luis Mckee Follow-Up Appointment: 1 week PO with [facility] Prescriptions: New sennosides-docusate sodium [Senna-S] 8.6-50 mg tablet 1 - 4 tab-cap PO BID PRN (Reason: constipation) Qty: 60 0RF Rx Instructions: Hold medication if experiencing loose stools. acetaminophen 500 mg capsule 500 - 1,000 mg PO Q6H MDD 4000mg PRNQty: 100 0RF oxycodone 5 mg tablet 2.5 - 5 mg PO Q4-6H MDD 6 PRN (Reason: pain) Qty: 30 0RF Rx Instructions: Take as needed for postop pain: 2.5mg mild pain, 5mg moderate-severe pain; wean as tolerated. Continued calcium carbonate 500 mg calcium (1,250 mg) tablet 500 mg PO DAILY simvastatin 40 mg tablet 40 mg PO QPM cholecalciferol (vitamin D3) 25 mcg (1,000 unit) capsule 25 mcg PO QDAY lisinopril-hydrochlorothiazide 10-12.5 mg tablet 1 tab PO QDAY Qty: 90 2RF potassium chloride [Klor-Con 10] 10 mEq tablet extended release 10 meq PO QDAY Qty: 7 0RF Rx Instructions: Take 1 tablet daily x7 days recheck lab in 5 days Activity Level: Activity as Tolerated and Other Activity Detail: Sling at all times unless bathing or performing elbow range of motion and pendulums. Discharge Diet: Diabetic Patient Instructions: Acetaminophen (By mouth), Oxycodone, Rapid Release (By mouth), Senna (By mouth), Shoulder Arthroplasty (DC) Additional Instructions: Wound: ?Do not remove original dressing; we will remove this at first postop visit in 1 week. Only remove dressing if integrity is in question. ?No immersing wound in water; showering okay; light scrub with your hand and body soap, rinse, dab dry ?Sutures are under the skin, will dissolve; allow surgical glue to come off naturally; do not scrub the wound or apply ointments/lotions ?Call our office with any redness that streaks, excessive drainage from the wound, or wound gapping. Ice/Elevate: ?Ice as needed for swelling and discomfort (cryocuff or ice pack); elevate hand/forearm about heart if possible SHAZIA socks: ?Wear for 1 month, remove for 1 hour 3 times per day ?These are frustrating to take on/off, but are important for blood clot prevention for 1 month after surgery even though this was an upper extremity surgery. Driving: ?Do not drive while taking narcotic pain medication ?Anticipate a few weeks of no driving if you feel uncomfortable driving with one arm Dental: ?No elective dental work for 6 months post-op. If there is an urgent/emergent dental need, contact our office for an antibiotic prescription. Smoking/Alcohol: ?Do not smoke; do no drink alcohol especially when taking postoperative oral narcotic medication Seek Care from you Primary Care Provider if you experience the following issues in the postoperative phase and beyond: ?Bacterial infections such as: pneumonia, bacterial skin infection (cellulitis), UTI, high fever, chills unrelated to the operative body part - call your primary care physician urgently for treatment in hopes to protect your health and the metal implant. Referrals: ?PT, OT per patient preference - evaluate treat [reverse/anatomic] total shoulder arthroplasty protocol (ROM, ADLs) Follow up: ?Ortho surgeon follow-up in 6 weeks; repeat radiographs three views operative shoulder ?PA-C visit in 1 week *If there are any acute concerns regarding your surgery, please call our orthopedic clinic ([phone]) Forms: Work/School Release Follow-up: [facility] [Provider Group] - 03/13/22 5:00 pm Nahomi Dobbs PA-C [Primary Care Provider] - (Set up appointment as needed) Gerard Cancino PA-C [Physician Equal Opportunity Specialist] - 03/16/22 10:10 am Discharge Orders: Discharge Order (Routine); Ordered 03/09/22 Ordered By: Gerard Cancino
== END 2022-03-09 10:00 | disposition home or self-care (01) ==
LOC: OR 10:19 → MEDSURG 10:52
PROVIDERS: PCP Physician Assistant Medical; Visit Provider Orthopaedic Surgery Sports Medicine
PROC: 0RRJ0JZ Replacement of Right Shoulder Joint with Synthetic Substitute, Open Approach (ICD-10-PCS; CPT 23472; principal; 2022-03-08 12:00)
DX: M19.212 Secondary osteoarthritis, left shoulder (principal); S42.142A Displaced fracture of glenoid cavity of scapula, left shoulder, initial encounter for closed fracture; M75.22 Bicipital tendinitis, left shoulder; I10 Essential (primary) hypertension; E87.6 Hypokalemia
CPT/HCPCS: 23472; 23430; 01638; 36415; 64415; 73030; 76942; 82565; 84132; 84295; 84520; 85027; 97161; 97165; 97530; A4565; A9270; C1713; C1776; J0330; J1100; J2250; J2370; J2405; J2704; J2710; J2795; J3010; J3370; J7120; L3670; S0077

== ENCOUNTER 2022-05-04 12:43 | Outpatient (CLI) | payer OTHER, SELFPAY ==
--- NOTE | 2022-05-04 13:00 | CRLHL7_ITS ---
For Patients: As a result of the Century Cures Act, medical imaging exams and procedure reports are released immediately into your electronic medical record. You may view this report before your referring provider. If you have questions, please contact your health care provider. Indication: Left lower extremity numbness, evaluate for left S1 radiculopathy Technique: Multiplanar, multisequence, MRI of the lumbar spine, obtained without contrast. Comparison: Lumbar spine x-ray 04/12/2022 Findings: Preserved lumbar lordosis. Degenerative grade 1 anterolisthesis L4 on L5. No evidence of acute fracture or focal compression deformity. No suspicious marrow lesion. Unremarkable included SI joints. The conus medullaris terminates at approximately L1. No suspicious findings in the paravertebral soft tissues. Incidental bilateral renal cysts. T12-L1, L1-2, L2-3: No significant neural foraminal or spinal canal stenosis. L3-L4: Minimal diffuse disc bulge. Mild facet arthropathy. Fluid signal within the interspinous space. No significant neural foraminal or spinal canal stenosis. L4-L5: Grade 1 anterolisthesis, disc unroofing/bulge, facet arthropathy. Mild left neural foraminal narrowing. No right neural foraminal stenosis. Left lateral recess stenosis with possible impingement of the descending left L5 nerve root. No central spinal canal stenosis. L5-S1: Diffuse disc osteophyte complex, facet arthropathy. Moderate right, moderate-severe left neural foraminal stenosis, with possible impingement of exiting bilateral L5 nerve roots. Left lateral recess stenosis with possible impingement of the descending left S1 nerve root. No central spinal canal stenosis. Impression: 1. Lumbar spondylosis, without evidence of acute osseous abnormality or significant central spinal canal stenosis. 2. At L3-4, fluid signal within the interspinous space, suggestive of bursitis. No bony edema. 3. At L4-5, degenerative grade 1 anterolisthesis, with left lateral recess stenosis possibly impinging the descending left L5 nerve root. 4. At L5-S1, moderate right/moderate-severe left neural foraminal stenosis possibly impinging the exiting bilateral L5 nerve roots, as well as left lateral recess stenosis possibly impinging the descending left S1 nerve root. Dictated by Candie Lynn MD @ 05/05/2022 12:36:48 PM (Electronically Signed)
== END 2022-05-04 12:44 | disposition home or self-care (01) ==
LOC: MRI 12:44
PROVIDERS: PCP Physician Assistant Medical; Visit Provider Family Medicine
DX: R20.0 Anesthesia of skin (principal); M48.061 Spinal stenosis, lumbar region without neurogenic claudication
CPT/HCPCS: 72148

== ENCOUNTER 2022-05-24 11:05 | Outpatient (CLI) | payer OTHER, SELFPAY | END 2022-05-24 11:06 | disposition home or self-care (01) | PROVIDERS: PCP Physician Assistant Medical; Visit Provider Family Medicine | DX: S49.92XA Unspecified injury of left shoulder and upper arm, initial encounter (principal); V49.40XA Driver injured in collision with unspecified motor vehicles in traffic accident, initial encounter; Y92.410 Unspecified street and highway as the place of occurrence of the external cause | CPT/HCPCS: A0998 ==

== ENCOUNTER 2022-05-24 12:35 | Emergency (ER) | payer OTHER, SELFPAY ==
[2022-05-24 12:39] VITALS: BP 141/81; PULSE 104; RESP 16; TEMP 36.5; O2SAT 98; BMI 29.1
[2022-05-24 14:01] VITALS: BP 117/63; PULSE 87; RESP 16; O2SAT 97
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
== END 2022-05-24 14:25 | disposition home or self-care (01) ==
LOC: ED 14:22
PROVIDERS: Emergency Provider Family Medicine; PCP Physician Assistant Medical
DX: S00.412A Abrasion of left ear, initial encounter (principal); S40.012A Contusion of left shoulder, initial encounter; V53.5XXA Driver of pick-up truck or van injured in collision with car, pick-up truck or van in traffic accident, initial encounter
CPT/HCPCS: 99283

== ENCOUNTER 2022-05-30 07:45 | Outpatient (CLI) | payer OTHER, SELFPAY | END 2022-05-30 07:46 | disposition home or self-care (01) | LOC: OP CLINIC 07:46 | PROVIDERS: PCP Physician Assistant Medical; Visit Provider Internal Medicine | DX: Z12.11 Encounter for screening for malignant neoplasm of colon (principal); K63.5 Polyp of colon; K57.30 Diverticulosis of large intestine without perforation or abscess without bleeding; K62.1 Rectal polyp; Z80.0 Family history of malignant neoplasm of digestive organs; Z86.010 Personal history of colon polyps | CPT/HCPCS: 45380; 88305; J2250; J3010 ==

== ENCOUNTER 2022-06-05 13:00 | Outpatient (RCR) | payer OTHER, SELFPAY ==
--- NOTE | 2022-03-03 14:23 | OT.OPGNE ---
OT Outpatient General/Neuro Eval OT Outpatient General/Neuro Eval Start: 03/03/22 14:05 Freq: Status: Active Protocol: Document 03/03/22 14:09 [facility] (Rec: 03/03/22 14:20 SMW [id number]) E-signed By Ketty Bourgeois OT OT Outpatient Evaluation Details Type Type Eval Complexity Low Insurance Information Insurance Information Insurance Information [facility] Outpatient History/Precautions Medical/Functional History Medical History Reviewed Yes Prior Level of Function/Mobility Since fall injuring her right upper extremity, she has required some assistance with ADLs and IADLS. 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 Oriented Patient Orientation Person,Place,Time,Situation Patient Subjective Subjective Patient Subjective I am just ready get this shoulder replaced. Assessment Assessment Assessment The patient is a 62-year-old female referred to outpatient OT for a pre-op for a left reverse total shoulder arthroplasty on 03/08/22. Patient sustained a right humerus fracture of her right upper extremity ~ 2 months ago after falling at work. She has recently been cleared to move her right arm and participate in PT. She states that her left upper extremity has progressed with pain since she has had to rely on it recently. Today, she was educated on post op exercises, progression of therapy while hospitalized, one handed dressing techniques. Patient has made many modifications at home due to bilateral upper extremity issues. All questions were answered satisfactorily. Occupational Therapy Treatment Plan - OP Goals Goals Evaluation only Certification Certification I Certify That: Therapy Services Provided, Therapy Plan Established, Therapy Plan Reviewed
== END 2022-10-12 23:59 | disposition home or self-care (01) ==
PROVIDERS: PCP Physician Assistant Medical; Visit Provider Physician Assistant Surgical
DX: S42.201D Unspecified fracture of upper end of right humerus, subsequent encounter for fracture with routine healing (principal); Z51.89 Encounter for other specified aftercare
CPT/HCPCS: 97012; 97110; 97140; 97161; 97162; 97165

== ENCOUNTER 2022-06-06 08:22 | Outpatient (CLI) | payer OTHER, SELFPAY | END 2022-06-06 08:23 | disposition home or self-care (01) | LOC: NFLDREF 06-08 07:23 | PROVIDERS: PCP Physician Assistant Medical; Referring Provider Physician Assistant Medical; Visit Provider Physician Assistant Medical | DX: E78.5 Hyperlipidemia, unspecified (principal) | CPT/HCPCS: 80061 ==

== ENCOUNTER 2022-09-12 13:22 | Outpatient (CLI) | payer OTHER, SELFPAY ==
--- NOTE | 2022-09-12 13:40 | CRLHL7_ITS ---
For Patients: As a result of the Century Cures Act, medical imaging exams and procedure reports are released immediately into your electronic medical record. You may view this report before your referring provider. If you have questions, please contact your health care provider. BILATERAL SCREENING MAMMOGRAM WITH COMPUTER-AIDED DETECTION AND TOMOSYNTHESIS TECHNIQUE: CC and MLO views were obtained. These mammographic images have been obtained using full-field digital technique. These mammographic images were interpreted with the benefit of computer-aided detection. Breast Tomosynthesis was used in this interpretation. COMPARISON FILM: 01/17/21, 10/13/19, 05/23/18. FINDINGS: The breasts are almost entirely fatty IMPRESSION: There is no radiographic evidence for malignancy. ASSESSMENT: BI-RADS Category 1: Negative RECOMMENDATION: Routine screening mammogram in 1 year. A lay language report of this examination will be provided to the patient. Dong Maynard M.D. Diagnostic/Nuclear Medicine Radiologist [email or web address] CONG/Dictated by: Dong Maynard MD @ 09/13/2022 9:04:00 AM (Electronically Signed)
== END 2022-09-12 13:23 | disposition home or self-care (01) ==
LOC: MAMMO 13:24
PROVIDERS: PCP Physician Assistant Medical; Visit Provider Physician Assistant Medical
DX: Z12.31 Encounter for screening mammogram for malignant neoplasm of breast (principal)
CPT/HCPCS: 77063; 77067

== ENCOUNTER 2022-09-14 08:43 | Outpatient (CLI) | payer OTHER, SELFPAY ==
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
== END 2022-09-14 08:44 | disposition home or self-care (01) ==
LOC: CT 08:44
PROVIDERS: PCP Physician Assistant Medical; Visit Provider Physician Assistant Surgical
DX: M25.512 Pain in left shoulder (principal); V89.2XXA Person injured in unspecified motor-vehicle accident, traffic, initial encounter; Z96.619 Presence of unspecified artificial shoulder joint
CPT/HCPCS: 73200

== ENCOUNTER 2025-02-12 08:01 | Outpatient (CLI) | payer MEDICARE, OTHER, SELFPAY ==
--- NOTE | 2025-02-12 08:15 | CRLHL7_ITS ---
For Patients: As a result of the Century Cures Act, medical imaging exams and procedure reports are released immediately into your electronic medical record. You may view this report before your referring provider. If you have questions, please contact your health care provider. Indication: Left hip pain Comparison: 02/06/25 Procedure : Informed consent was obtained. The site was marked. Time-out was performed. The skin of the left hip was cleansed with ChloraPrep. A sterile drape was placed. 8 cc of 1 percent lidocaine was administered for superficial anesthesia. Subsequently a 22 gauge spinal needle was introduced into the left hip joint under intermittent fluoroscopic guidance. Injection of 7 cc 1% lidocaine and 2 cc 40 mg/cc then injected into the left hip joint. The needle was removed and hemostasis achieved with direct pressure. A dressing was placed. The patient tolerated the procedure well without immediate complication. Total fluoroscopy time 15 seconds. Impression: Successful fluoroscopically guided left hip injection with 80 mg of Depo-Medrol. Dictated by Bogdan Sutton MD @ 02/12/2025 10:41:49 AM (Electronically Signed)
== END 2025-02-12 08:02 | disposition home or self-care (01) ==
LOC: RAD 08:03
PROVIDERS: PCP Physician Assistant Medical; Visit Provider Physician Assistant Surgical
DX: M16.12 Unilateral primary osteoarthritis, left hip (principal); M25.552 Pain in left hip
CPT/HCPCS: 20610; 77002; J1010; Q9966